=== PATIENT | female | born 1990 | race Caucasian/White ===

== ENCOUNTER 2020-11-13 12:59 | Emergency (ER) | payer MEDICAID, SELFPAY ==
[2020-11-13 13:10] VITALS: BP 144/92; PULSE 83; RESP 18; TEMP 36.9; O2SAT 98
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
== END 2020-11-13 14:38 | disposition home or self-care (01) ==
PROVIDERS: Emergency Provider Registered Nurse; PCP Nurse Practitioner Family
DX: M25.512 Pain in left shoulder (principal); K21.00 Gastro-esophageal reflux disease with esophagitis, without bleeding; M19.90 Unspecified osteoarthritis, unspecified site; Z86.19 Personal history of other infectious and parasitic diseases
CPT/HCPCS: 99213; G0463

== ENCOUNTER 2021-04-09 18:09 | Emergency (ER) | payer OTHER, SELFPAY ==
[2021-04-09 18:11] VITALS: BP 145/97; PULSE 76; RESP 20; TEMP 36.6; O2SAT 100
--- NOTE | 2021-04-09 19:53 | ED.GENADULT ---
HPI - General Adult General Chief complaint: Anxiety Stated complaint: chest pain for 2 months Time Seen by Provider: 04/09/21 19:21 Source: patient and RN notes reviewed Mode of arrival: ambulatory Limitations: no limitations History of Present Illness HPI narrative: Patient is a 31-year-old female who presents with chest pressure and anxiety has been under increasing stress with longstanding history of anxiety patient was at work when she began to feel chest pressure and anxious presents to ER and on arrival is resting comfortably in the room in no distress is managed by primary care for her anxiety has been going through a separation and has had increasing stress from this patient denies illness or other complaints and otherwise not appear distressed upon arrival denies any suicidal or homicidal ideation Related Data Allergies Allergy/AdvReac Type Severity Reaction Status Date / Time No Known Allergies Allergy Unknown Verified 11/13/20 13:47 Review of Systems Review of Systems: All systems reviewed & are unremarkable except as noted in HPI and below PMFSH Past Medical History Medical History Anxiety Arthritis Back pain Depression GERD (gastroesophageal reflux disease) Hemorrhoids MRSA (methicillin resistant Staphylococcus aureus) Abscess UTI (urinary tract infection) Surgical History Surgical History Hx of cholecystectomy Family History Family History Other Diabetes mellitus Family history of coronary artery disease Social History Social History Smoking status: Never smoker Alcohol intake: current Substance use type: does not use Gender identity (if verbalized by the patient): Female Exam Narrative: Exam Narrative: GENERAL: Well-appearing, well-nourished, and in no acute distress. HEAD: Normocephalic, atraumatic. EYES: PERRLA and EOMI. ENT: Nares clear, no rhinorrhea or epistaxis. Mucous membranes moist. CHEST: Clear to auscultation. No respiratory distress. No wheezes rales or rhonchi HEART: Regular rate and rhythm. No murmur heard. EXTREMITIES: Normal range of motion. No edema. SKIN: Warm, dry, no rash. NEURO: No focal deficits. Alert and oriented x3. Cranial nerves II through XII grossly intact PSYCH: Normal mood and affect. Course Course Emergency Course: Patient in the room in no distress aware of case findings treatment plan and diagnosis agreeing to follow-up as instructed Vital Signs Vital signs: Vital Signs Temperature 97.8 F 04/09/21 18:11 Pulse Rate 76 04/09/21 18:11 Respiratory Rate 20 04/09/21 18:11 Blood Pressure 145/97 H 04/09/21 18:11 Pulse Oximetry 100 04/09/21 18:11 Temperature 97.8 F 04/09/21 18:11 Pulse Rate 76 04/09/21 18:11 Respiratory Rate 20 04/09/21 18:11 Blood Pressure 145/97 H 04/09/21 18:11 Pulse Oximetry 100 04/09/21 18:11 Medical Decision Making MDM Narrative Medical decision making narrative: Patient in the room no distress hemodynamically stable aware of case findings treatment plan and diagnosis felt appropriate for outpatient reevaluation agreeing to follow-up with her primary care doctor this week Vital Signs Vital Signs: Vital Signs Temperature 97.8 F 04/09/21 18:11 Pulse Rate 76 04/09/21 18:11 Respiratory Rate 20 04/09/21 18:11 Blood Pressure 145/97 H 04/09/21 18:11 Pulse Oximetry 100 04/09/21 18:11 Temperature 97.8 F 04/09/21 18:11 Pulse Rate 76 04/09/21 18:11 Respiratory Rate 20 04/09/21 18:11 Blood Pressure 145/97 H 04/09/21 18:11 Pulse Oximetry 100 04/09/21 18:11 Discharge Plan Discharge Clinical Impression: Acute anxiety Patient Disposition: Home, Self-Care Condition: Stable Instructions: Antibiotic Form, Anxiety (ED) Add
[2021-04-09 20:04] VITALS: BP 149/94; PULSE 70; RESP 16; O2SAT 99
== END 2021-04-09 20:10 | disposition home or self-care (01) ==
PROVIDERS: Emergency Provider Emergency Medicine; PCP Nurse Practitioner Family
DX: F41.9 Anxiety disorder, unspecified (principal); M19.90 Unspecified osteoarthritis, unspecified site; K21.9 Gastro-esophageal reflux disease without esophagitis; Z86.14 Personal history of Methicillin resistant Staphylococcus aureus infection; Z87.440 Personal history of urinary (tract) infections
CPT/HCPCS: 99281

== ENCOUNTER 2021-05-27 16:33 | Emergency (ER) | payer OTHER, SELFPAY ==
--- NOTE | ~2021-05-27 | XR_ITS ---
XR knee RT 2V 05/27/2021 16:59 INDICATION: Right knee pain after fall PROCEDURE: 3 views right knee COMPARISON: No prior studies for comparison. FINDINGS: Fracture, dislocation or subluxation is not identified. No significant joint effusion. The soft tissues appear within normal limits. No foreign bodies are identified. IMPRESSION: 1: NO ACUTE BONE OR JOINT ABNORMALITY IDENTIFIED. Reviewed, dictated and finalized at location A.
--- NOTE | ~2021-05-27 | XR_ITS ---
XR hip RT min 3V w AP pelvis 05/27/2021 17:29 INDICATION: Right hip pain PROCEDURE: 4 views right hip COMPARISON: 06/05/2017 FINDINGS: Fracture, dislocation or subluxation is not identified. The soft tissues appear within norm al limits. No foreign bodies are identified. IMPRESSION: 1: NO ACUTE BONE OR JOINT ABNORMALITY IDENTIFIED. Reviewed, dictated and finalized at location A.
[2021-05-27 16:34] VITALS: BP 145/109; PULSE 68; RESP 18; TEMP 36.3; O2SAT 100
--- NOTE | 2021-05-27 17:19 | ED.GENADULT ---
HPI - General Adult General Chief complaint: Fall Stated complaint: fall Time Seen by Provider: 05/27/21 16:44 Source: patient Mode of arrival: ambulatory Limitations: no limitations History of Present Illness HPI narrative: Patient presents for evaluation of pain in the right lower extremity. She indicates she works at [employer] which is connected to a [employer]. Today she was walking in through the [employer] entrance and there was no mat on the floor. She slipped on a wet floor and landed on the right side of the body. She did not hit her head or have loss of consciousness. She states she hurts entirely on the right side, but most notable in the right knee, moving both proximally and distally from that. She is able to bear weight and ambulate. She states that the pain is approximately 7 out of 10 in severity, without descriptive quality. No paresthesias. She has not taken anything for pain. LMP 1 week ago. No additional complaints or concerns. Related Data Allergies Allergy/AdvReac Type Severity Reaction Status Date / Time No Known Allergies Allergy Unknown Verified 05/27/21 16:41 Review of Systems Review of Systems: Narrative: CONSTITUTIONAL: Denies fever, chills, or sweats. EYES: Denies visual changes, redness, or discharge. ENT: Denies rhinorrhea, congestion, sore throat, or otalgia. CARDIOVASCULAR: Denies chest pain, palpitations, or edema. RESPIRATORY: Denies cough or dyspnea. GASTROINTESTINAL: Denies abdominal pain, nausea, vomiting, or diarrhea. GENITOURINARY: Denies dysuria or hematuria. SKIN: Denies rash or itching. MUSCULOSKELETAL: Reports pain in the right lower extremity extending proximally and distally from the right knee. Denies back pain NEUROLOGIC: Denies headache, numbness, dizziness, or weakness. PSYCHIATRIC: Denies anxiety or depression. [facility] Past Medical History Medical History Anxiety Arthritis Back pain Depression GERD (gastroesophageal reflux disease) Hemorrhoids MRSA (methicillin resistant Staphylococcus aureus) Abscess UTI (urinary tract infection) Surgical History Surgical History Hx of cholecystectomy Family History Family History Other Diabetes mellitus Family history of coronary artery disease Social History Social History Smoking status: Never smoker Alcohol intake: current Substance use type: does not use Gender identity (if verbalized by the patient): Female Exam Narrative: Exam Narrative: GENERAL: Well-appearing, well-nourished, and in no acute distress. HEAD: Normocephalic, atraumatic. EYES: PERRLA and EOMI. ENT: Nares clear, no rhinorrhea or epistaxis. Mucous membranes moist. Oropharynx without tonsillar hypertrophy exudate or other lesions. Bilateral TMs pearly benavidez nonbulging NECK: Supple. No adenopathy or masses. No carotid bruits or JVD CHEST: Clear to auscultation. No respiratory distress. No wheezes rales or rhonchi HEART: Regular rate and rhythm. No murmur heard. Normal peripheral pulses. ABDOMEN: Soft, nontender, nondistended, normal active bowel sounds. EXTREMITIES: Tenderness diffusely through the right lower extremity, most notable in the right knee. There is no crepitus, swelling, deformity. Patient performs minimal active range of motion of the right knee secondary to pain but she is able to tolerate full passive range of motion of the right knee. SKIN: Warm, dry, no rash. NEURO: No focal deficits. Alert and oriented x3. PSYCH: Normal mood and affect. Course Course Emergency Course: This is a 31-year-old female who presented with right lower extremity pain after experiencing a fall while walking into work today. X-ray of knee, right hip and pelvis were negative. Exam is consistent with right hip c
[2021-05-27] MEDS: KETOROLAC (*BKC) 60 MG/2 ML VIAL IM (17:33)
== END 2021-05-27 18:16 | disposition home or self-care (01) ==
PROVIDERS: Emergency Provider Nurse Practitioner; PCP Nurse Practitioner Family
DX: S70.01XA Contusion of right hip, initial encounter (principal); S86.911A Strain of unspecified muscle(s) and tendon(s) at lower leg level, right leg, initial encounter; M19.90 Unspecified osteoarthritis, unspecified site; K21.9 Gastro-esophageal reflux disease without esophagitis; Z86.14 Personal history of Methicillin resistant Staphylococcus aureus infection; Z87.440 Personal history of urinary (tract) infections; W01.0XXA Fall on same level from slipping, tripping and stumbling without subsequent striking against object, initial encounter
CPT/HCPCS: 73502; 73560; 96372; 99283; J1885